=== PATIENT | male | born 1960 | race Caucasian/White ===

== ENCOUNTER 2019-03-14 17:16 | Inpatient (IN) | payer MEDICAID ==
[~2019-03-14] VITALS: Ht 177.8 cm; Wt 79.8 kg
[~2019-03-14 17:16] MED LIST: ATOR40TA71 PO; DIPH50 PO; LAMO150T5 PO; PALI6 PO; TRAZ-220 PO
[2019-03-14 19:26] VITALS: BP 106/67
[2019-03-14 20:05] VITALS: BP 120/73
[2019-03-14] MEDS ORDERED: ONDANSETRON HCL 4 MG TABLET PO PRN (20:30)
[2019-03-14] MEDS ORDERED: IBUPROFEN 400 MG TABLET PO PRN (20:30)
[2019-03-14] MEDS ORDERED: MAGNESIUM HYDROXIDE SUSPENSION 30 ML UDCUP PO PRN (20:30)
[2019-03-14] MEDS ORDERED: GuaiFENesin/D-METHORPHAN [SUGAR-FREE] 200-20MG/10 ML SYRUP UDCUP PO PRN (20:30)
[2019-03-14] MEDS ORDERED: PETROLATUM,WHITE 28 GM JELLY TP PRN (20:30)
[2019-03-14] MEDS ORDERED: CloNIDine HCL 0.1 MG TABLET PO PRN (20:30)
[2019-03-14] MEDS ORDERED: MAG HYDROX/AL HYDROX/SIMETH ES 30 ML SUSPENSION UDCUP PO PRN (20:30)
[2019-03-14] MEDS ORDERED: LOPERAMIDE HCL 2 MG CAPSULE PO PRN (20:30)
[2019-03-14] MEDS ORDERED: ACETAMINOPHEN 325 MG TABLET PO PRN (20:30)
[2019-03-14] MEDS ORDERED: DOCUSATE SODIUM 100 MG CAPSULE PO PRN (20:30)
[2019-03-14] MEDS ORDERED: ALBUTEROL SULFATE HFA 90 MCG/PUFF 8 GM INHALER IH PRN (20:30)
[2019-03-14] MEDS ORDERED: NICOTINE 14 MG/24 HOUR PATCH TD PRN (20:30)
[2019-03-14] MEDS: ATORVASTATIN CALCIUM 40 MG TABLET PO SCH (20:54)
[2019-03-15 00:26] VITALS: BP 115/74
[2019-03-15] MEDS: ZOLPIDEM TARTRATE 10 MG TABLET PO PRN (01:31)
[2019-03-15] MEDS: LORazepam 2 MG TABLET PO PRN (03:14)
[2019-03-15 07:27] LABS: BASOPHILS % (AUTO) 0.4 % (0.0-2.0); HEMATOCRIT 46.2 % (41-53); HEMOGLOBIN 15.1 g/dL (13.5-17.5); LYMPHOCYTES # (AUTO) 1.1 K/uL (1.0-4.8); LYMPHOCYTES % (AUTO) 13.1 % (22.0-44.0); MEAN CORPUSCULAR HEMOGLOBIN 28.2 pg (26.0-34.0); MEAN CORPUSCULAR HGB CONC 32.6 G/dL (31.0-37.0); MEAN CORPUSCULAR VOLUME 86 fL (80-100); MONOCYTES # (AUTO) 0.7 K/uL (0.1-1.0); MONOCYTES % (AUTO) 8.5 % (2.0-9.0); NEUTROPHILS # (AUTO) 6.2 K/uL (1.8-7.7); PLATELET COUNT (AUTO) 328 K/uL (150-450); RED BLOOD CELL COUNT(AUTO) 5.35 MIL/uL (4.50-5.90); RED CELL DISTRIBUTION WIDTH 14.9 % (11.5-14.5)
[2019-03-15 08:01] LABS: ALANINE AMINOTRANSFERASE 34 U/L (12-78); ALBUMIN 3.6 g/dL (3.4-5.0); ALKALINE PHOSPHATASE 90 U/L (46-116); ANION GAP 6 mmol/L (8-16); ASPARTATE AMINOTRANSFERASE 36 U/L (15-37); BILIRUBIN,TOTAL 0.9 mg/dL (0.1-1.0); CALCIUM, TOTAL 9.9 mg/dL (8.8-10.5); CARBON DIOXIDE 28 mmol/L (22-29); CHLORIDE 107 mmol/L (98-107); CHOL/HDL RATIO 3.6 (4.2-7.3); CHOLESTEROL 128 mg/dL (131-200); CREATININE 0.99 mg/dL (0.60-1.30); FREE T4 (FREE THYROXINE) 1.05 ng/dL (0.76-1.46); GLOMERULAR FILTR. RATE CALC > 60 mL/min (>60); GLUCOSE,RANDOM 90 mg/dL (70-110); HDL CHOLESTEROL 36 mg/dL (40-60); LDL CHOL (CALC.) 68 mg/dL (0-130); POTASSIUM 4.3 mmol/L (3.5-5.1); SODIUM SERUM 141 mmol/L (136-145); THYROID STIMULATING HORMONE 1.75 uIU/mL (0.36-3.74); TOTAL PROTEIN, SERUM 7.1 g/dL (6.4-8.2); TRIGLYCERIDES 118 mg/dL (15-150); UREA NITROGEN, BLOOD 18 mg/dL (7-18)
[2019-03-15 08:09] VITALS: BP 111/68
[2019-03-15] MEDS: PALIPERIDONE 6 MG ER TABLET PO SCH (10:18)
[2019-03-15] MEDS: TERBINAFINE HCL 1% 30 GM CREAM TP SCH (16:54)
[2019-03-15 17:20] VITALS: BP 139/76
[2019-03-15] MEDS: LamoTRIgine 100 MG TABLET PO SCH (20:37)
[2019-03-15] MEDS: ATORVASTATIN CALCIUM 40 MG TABLET PO SCH (20:37)
[2019-03-15] MEDS: DiphenhydrAMINE HCL 50 MG CAPSULE PO SCH (20:37)
[2019-03-15] MEDS: TraZODone HCL 100 MG TABLET PO SCH (20:37)
[2019-03-16 08:30] VITALS: BP 144/62
[2019-03-16] MEDS: LORazepam 2 MG TABLET PO PRN ×2 (09:16→14:22)
[2019-03-16] MEDS: PALIPERIDONE 6 MG ER TABLET PO SCH (09:16)
[2019-03-16] MEDS: HALOPERIDOL 5 MG TABLET PO PRN ×2 (09:16→16:36)
[2019-03-16] MEDS: TERBINAFINE HCL 1% 30 GM CREAM TP SCH ×2 (09:16→16:35)
[2019-03-16 16:25] VITALS: BP 113/68
[2019-03-16] MEDS: ATORVASTATIN CALCIUM 40 MG TABLET PO SCH (20:37)
[2019-03-16] MEDS: TraZODone HCL 100 MG TABLET PO SCH (20:37)
[2019-03-16] MEDS: LamoTRIgine 100 MG TABLET PO SCH (20:37)
[2019-03-16] MEDS: DiphenhydrAMINE HCL 50 MG CAPSULE PO SCH (20:37)
[2019-03-16] MEDS: ZOLPIDEM TARTRATE 10 MG TABLET PO PRN (20:37)
[2019-03-17] MEDS: TERBINAFINE HCL 1% 30 GM CREAM TP SCH (08:34)
[2019-03-17] MEDS: PALIPERIDONE 6 MG ER TABLET PO SCH (08:34)
[2019-03-17 09:30] VITALS: BP 104/62
[2019-03-17] MEDS ORDERED: PALI6 PO ×2 (11:00→14:59)
[2019-03-17] MEDS ORDERED: LAMO100 PO ×2 (11:00→14:59)
[2019-03-17] MEDS ORDERED: TRAZ-220 PO ×2 (11:00→14:59)
[2019-03-17] MEDS ORDERED: DIPH50 PO ×2 (11:00→14:58)
== END 2019-03-17 18:02 | disposition home or self-care (01) | DRG 750 ==
LOC: B3A 19:46
DX: F25.0 Schizoaffective disorder, bipolar type (principal); R45.851 Suicidal ideations; B35.3 Tinea pedis; E78.5 Hyperlipidemia, unspecified; F12.10 Cannabis abuse, uncomplicated; F17.200 Nicotine dependence, unspecified, uncomplicated; K59.00 Constipation, unspecified; G47.00 Insomnia, unspecified; Z71.6 Tobacco abuse counseling; Z71.51 Drug abuse counseling and surveillance of drug abuser; Z79.899 Other long term (current) drug therapy
CPT/HCPCS: 83036; 84436; 84439; 84443; 87081